=== PATIENT | female | born 1990 | race Caucasian/White ===

== ENCOUNTER 2016-10-17 08:56 | Emergency (ER) | payer BC ==
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
== END 2016-10-17 10:31 | disposition home or self-care (01) ==
LOC: UCEAST 08:56
DX: Z87.891 Personal history of nicotine dependence (principal); Z34.91 Encounter for supervision of normal pregnancy, unspecified, first trimester
CPT/HCPCS: 81003; 84702; 87086; 99201; G0463

== ENCOUNTER 2016-12-26 10:16 | Emergency (ER) | payer SELFPAY ==
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
[2016-12-26] MEDS ORDERED: NS 0.9% 1000 ML* 1,000 ML IV ONE (11:41)
[2016-12-26 12:42] LABS: Hematocrit 40 % (35-47); Mean Corpuscular HGB Conc 33 g/dl (31-36); Mean Corpuscular Hemoglobin 28 pg (27-31); Mean Corpuscular Volume 85 fL (80-97); Mean Platelet Volume 9 um3 (7.4-10.4); Red Blood Count 4.65 10^6/ul (4.0-5.4); Red Cell Distribution Width 13 % (10.5-15); White Blood Count 8.2 10^3/ul (3.5-10.8)
[2016-12-26 13:02] LABS: Albumin 4.3 g/dL (3.2-5.2); BUN/Creatinine Ratio 22.4 (8-20); Calcium 9.1 mg/dL (8.6-10.3); EGFR African American 164.3 (>60); EGFR Non-African American 127.7 (>60); Globulin 2.4 g/dL (2-4); Potassium 3.8 mmol/L (3.5-5.0); Total Bilirubin 1.1 mg/dL (0.2-1.0); Total Protein 6.7 g/dL (6.4-8.9)
[2016-12-26] MEDS ORDERED: Iohexol 300* (CONTRAST) 10 ML SDV IV ONE (13:15)
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
== END 2016-12-26 15:07 | disposition home or self-care (01) ==
LOC: ED 10:16
DX: S20.212A Contusion of left front wall of thorax, initial encounter (principal); R10.12 Left upper quadrant pain; S70.212A Abrasion, left hip, initial encounter; V49.9XXA Car occupant (driver) (passenger) injured in unspecified traffic accident, initial encounter; Y93.9 Activity, unspecified; Y92.9 Unspecified place or not applicable; Y99.9 Unspecified external cause status; Z87.891 Personal history of nicotine dependence
CPT/HCPCS: 36415; 70450; 71260; 72125; 74177; 80053; 83605; 85025; 99282; Q9967

== ENCOUNTER 2017-12-03 18:24 | Emergency (ER) | payer BC, OTHER ==
[2017-12-03 19:04] VITALS: BP 132/86
--- NOTE | 2017-12-03 19:36 | UC ---
Skin Complaint HPI - HPI Summary HPI Summary: 27 year old with tick bite upper left shoulder. Pulled off tick from L shoulder on Thursday, had tested at [facility], came back positive for lyme. Denies any fevers or aches. [ End ] - History of Current Complaint Chief Complaint: UCGeneralIllness Time Seen by Provider: 12/03/17 19:04 Stated Complaint: TICK BITE Hx Obtained From: Patient Hx Last Menstrual Period: started 11/26/2017 Onset/Duration: Sudden Onset Pain Intensity: 0 Aggravating Factor(s): Nothing Alleviating Factor(s): Nothing Associated Signs & Symptoms: Positive: Negative - Allergy/Home Medications Allergies/Adverse Reactions: Allergies Allergy/AdvReac Type Severity Reaction Status Date / Time No Known Allergies Allergy Verified 12/03/17 18:59 Review of Systems Skin: Other - tick bite Is Patient Immunocompromised?: No All Other Systems Reviewed And Are Negative: Yes PMH/Surg Hx/FS Hx/Imm Hx Previously Healthy: Yes - Surgical History Surgical History: None - Family History Known Family History: Positive: None - Social History Occupation: Employed Full-time - [employer] Alcohol Use: Weekly Substance Use Type: None Smoking Status (MU): Current Some Day Smoker Type: Cigarettes Physical Exam Triage Information Reviewed: Yes Appearance: Well-Appearing, No Pain Distress, Well-Nourished Vital Signs: Initial Vital Signs Temp 98.8 F 12/03/17 18:58 Pulse 70 12/03/17 18:58 Resp 18 12/03/17 18:58 BP 132/86 12/03/17 18:58 Pulse Ox 100 12/03/17 18:58 Eyes: Positive: Conjunctiva Clear ENT: Positive: Hearing grossly normal Respiratory Exam: Normal Cardiovascular Exam: Normal Musculoskeletal Exam: Normal Neurological Exam: Normal Psychological Exam: Normal Skin Exam: Normal Skin: Positive: Other - left upper shoulder anterior with red superficiual punctate lesion < 2x2 mm Course/Dx - Course Course Of Treatment: had extensive discussion about SE of prophylactic doxy and she wants at this time. offered at this time - Diagnoses Provider Diagnoses: tick bite Discharge - Sign-Out/Discharge Documenting (check all that apply): Discharge/Admit/Transfer - Discharge Plan Condition: Good Disposition: HOME Prescriptions: DOXYcycline CAP(*) [DOXYcycline 100MG CAP(*)] 100 mg PO DAILY #2 cap Patient Education Materials: Tick Bite (ED) Referrals: Patito Olivarez MD [Primary Care Provider] - 4 Days - Billing Disposition and Condition Condition: GOOD Disposition: HOME
== END 2017-12-03 19:50 | disposition home or self-care (01) ==
LOC: UCEAST 18:24
DX: S40.262A Insect bite (nonvenomous) of left shoulder, initial encounter (principal); W57.XXXA Bitten or stung by nonvenomous insect and other nonvenomous arthropods, initial encounter; Y92.9 Unspecified place or not applicable; F17.210 Nicotine dependence, cigarettes, uncomplicated
CPT/HCPCS: 99211; G0463